=== PATIENT | female | born 1970 | race Caucasian/White ===

== ENCOUNTER 2021-04-05 11:16 | Outpatient (CLI) | payer MEDICAID, SELFPAY ==
--- NOTE | 2021-04-05 11:21 | XR_ITS ---
WS: [id number] LUMBAR SPINE: 7 VIEWS TECHNIQUE: AP, oblique, lateral, L5-S1 spot. Upright lateral projections in neutral, flexion and exte nsion. HISTORY: CHRONIC BACK PAIN COMPARISON: None available. Moderate RIGHT curvature lumbar spine. No significant foraminal narrowing. Slight increase in the lum bar lordosis. No fracture or displacement narrowing. No instability during flexion or extension. Very mild facet jacqueline int arthritis at L5-S1. SI joints are symmetric bilaterally. No soft tissue abnormalities. XR/XR lumbar spine 6V w f/e [id number] IMPRESSION: 1. Mild RIGHT scoliosis lumbar spine. 2. No lumbar spine instability. 3. No foraminal stenosis.
--- NOTE | 2021-04-05 11:21 | XR_ITS ---
WS: [id number] THORACIC SPINE TECHNIQUE: AP and lateral views are performed. HISTORY: CHRONIC BACK PAIN COMPARISON: None available. Mild LEFT curvature thoracic spine with focal increased kyphosis centrally. Mild disc space narrowing and osteophytes in the midthoracic spine. No fractures. Intervertebral distances are normal. XR/XR thoracic spine 2V [id number] IMPRESSION: Mild LEFT curvature thoracic spine and mild central spondylosis. No fractures.
== END 2021-04-05 11:17 | disposition home or self-care (01) ==
PROVIDERS: Visit Provider Family Medicine
DX: M54.6 Pain in thoracic spine (principal); G89.29 Other chronic pain; M47.814 Spondylosis without myelopathy or radiculopathy, thoracic region; M43.8X4 Other specified deforming dorsopathies, thoracic region; M41.86 Other forms of scoliosis, lumbar region
CPT/HCPCS: 72070; 72114

== ENCOUNTER 2021-04-16 13:00 | Outpatient (CLI) | payer BC, MEDICAID, SELFPAY ==
--- NOTE | 2021-04-16 13:14 | MM_ITS ---
WS: [id number] BILATERAL DIGITAL DIAGNOSTIC MAMMOGRAM MAMMOGRAPHY WITH CAD CLINICAL INFORMATION: LT BREAST LUMP 1-3 OCLOCK HISTORY: Left breast palpable lump COMPARISON: TECHNIQUE: Bilateral CC, MLO, and ML views. FINDINGS: Scattered fibroglandular densities bilaterally. Palpable marker upper outer left breast. Underlying d ense parenchymal tissue. Ultrasound is pending. No suspicious abnormality right breast. Right breast appears unchanged. ULTRASOUND BREAST LEFT TECHNIQUE: Ultrasound left breast focused area of concern. CLINICAL INFORMATION: LT BREAST LUMP 1-3 OCLOCK COMPARISON: None. FINDINGS: Ultrasound left breast at the 2:00 position. Underlying dense breast tissue in the area of interest 1-3 o'clock. At the 2:00 position, is a small thick-walled complex cystic appearing lesion with internal echogenic debris. Small lesion measures 3. 3 x 3.5 x 3.4 mm. Findings are probably benign. No other suspicious abnormalities. Recommend 6 month follow-up left diagnostic mammography and ultrasound to confirm stability MM/[place] [id number] IMPRESSION: BI-RADS: 3-Probably Benign FOLLOW UP: 6 Month Follow-up Recommend 6 month follow-up left diagnostic mammography and ultrasound to confi rm stability
== END 2021-04-16 13:01 | disposition home or self-care (01) ==
PROVIDERS: PCP Family Medicine; Visit Provider Nurse Practitioner Family
DX: N63.25 Unspecified lump in the left breast, overlapping quadrants (principal)
CPT/HCPCS: 76642; 77066

== ENCOUNTER → 2021-06-04 12:53 | Outpatient (BNVA) | payer BC, MEDICAID, SELFPAY | PROVIDERS: PCP Family Medicine; Referring Provider Family Medicine; Visit Provider Specialist | DX: R20.0 Anesthesia of skin (principal); R20.2 Paresthesia of skin | CPT/HCPCS: 95910 ==

== ENCOUNTER 2021-06-27 08:01 | Outpatient (RCR) | payer BC, MEDICAID, SELFPAY | END 2021-07-16 23:59 | disposition home or self-care (01) | LOC: SPT 08:01 | PROVIDERS: PCP Family Medicine; Referring Provider Family Medicine; Visit Provider Family Medicine | DX: M54.9 Dorsalgia, unspecified (principal); G89.29 Other chronic pain; M41.9 Scoliosis, unspecified | CPT/HCPCS: 97110; 97161 ==

== ENCOUNTER 2021-07-17 06:00 | Outpatient (RCR) | payer BC, MEDICAID, SELFPAY | END 2021-08-13 23:59 | disposition home or self-care (01) | LOC: SPT 06:00 | PROVIDERS: PCP Family Medicine; Referring Provider Family Medicine; Visit Provider Family Medicine | DX: M54.9 Dorsalgia, unspecified (principal); G89.29 Other chronic pain; M41.9 Scoliosis, unspecified | CPT/HCPCS: 97110 ==

== ENCOUNTER 2021-08-14 06:00 | Outpatient (RCR) | payer BC, MEDICAID, SELFPAY | END 2021-09-13 23:59 | disposition home or self-care (01) | LOC: SPT 06:00 | PROVIDERS: PCP Family Medicine; Referring Provider Family Medicine; Visit Provider Family Medicine | DX: M54.9 Dorsalgia, unspecified (principal); M41.9 Scoliosis, unspecified | CPT/HCPCS: 97110; 97530 ==

== ENCOUNTER 2021-10-15 14:08 | Outpatient (CLI) | payer BC, MEDICAID, SELFPAY ==
--- NOTE | 2021-10-15 14:12 | MM_ITS ---
WS: [id number] LEFT 3D TOMOSYNTHESIS DIGITAL MAMMOGRAPHY WITH CAD CLINICAL INFORMATION: 6 MO F/U ABNORMAL MAMMOGRAM COMPARISON: April 16, 2021 TECHNIQUE: 3 views of the left breast were obtained. FINDINGS: Scattered fibroglandular densities of the left breast. Dense parenchymal tissue upper outer LEFT jhon[address] is unchanged in appearance. Incidental punctate calcification. Ultrasound is pending. ULTRASOUND BREAST LEFT TECHNIQUE: Ultrasound left breast focused area of concern. CLINICAL INFORMATION: 6 MO F/U ABNORMAL MAMMOGRAM COMPARISON: April 16, 2021 FINDINGS: Ultrasound LEFT breast at the 1 to 3:00 position. Thick-walled cystic lesion with some internal echog enic debris measuring 1.8 x 1.9 x 1.3 mm is unchanged in appearance. This likely represents a complex cyst. Recommend additional six-month follow-up at the time of annual screening mammography to tara russell. MM/[place] [id number] IMPRESSION: BI-RADS: 3-Probably Benign FOLLOW UP: 6 Month Follow-up Recommend additional LEFT breast diagnostic mammography and ultrasound at time of annual screening mammography April 2022
== END 2021-10-15 14:09 | disposition home or self-care (01) ==
LOC: RAD 14:09
PROVIDERS: PCP Family Medicine; Visit Provider Family Medicine
DX: R92.8 Other abnormal and inconclusive findings on diagnostic imaging of breast (principal)
CPT/HCPCS: 76642; 77061

== ENCOUNTER → 2022-01-02 11:04 | Outpatient (BNVA) | payer BC, MEDICAID, SELFPAY | PROVIDERS: PCP Family Medicine; Referring Provider Family Medicine; Visit Provider Specialist | DX: M79.7 Fibromyalgia (principal) | CPT/HCPCS: 36415; 82607; 82746; 85651; 86140; 86160; 86162; 86200; 86235; 86255; 86376; 86431; 99204 ==

== ENCOUNTER → 2022-02-19 10:08 | Outpatient (BNVA) | payer BC, MEDICAID, SELFPAY | PROVIDERS: PCP Family Medicine; Visit Provider Internal Medicine Rheumatology | DX: M45.6 Ankylosing spondylitis lumbar region (principal); M19.90 Unspecified osteoarthritis, unspecified site; Z11.59 Encounter for screening for other viral diseases; Z79.899 Other long term (current) drug therapy | CPT/HCPCS: 36415; 71046; 73130; 73562; 73630; 80076; 82565; 85025; 85651; 86140; 86480; 86704; 86803; 86812; 87340 ==

== ENCOUNTER 2022-04-07 16:10 | Emergency (ER) | payer BC, MEDICAID, SELFPAY ==
[2022-04-07 16:54] VITALS: BMI 19.8
[2022-04-07 16:59] VITALS: BP 140/81; PULSE 88; RESP 18; TEMP 36.9; O2SAT 98
--- NOTE | 2022-04-07 17:20 | ED_ITS ---
HPI - Back Pain/Injury General: Chief Complaint: Back Pain/Injury Stated Complaint: Abd pains, Vomiting Time Seen by Provider: 04/07/22 17:03 History of Present Illness: 52-year-old female comes in today for complaints of exacerbation of chronic pain. Patient taking her usual medications at home but she continues to have significant pain causing nausea. Patient has a history of inflammatory arthritis, scleroderma. Patient denies any fever. Patient appears in moderate pain. Patient appears nontoxic. Associated symptoms: Reports nausea; Deny fever(s) or vomiting Review of Systems Const: Denies: fever(s) Card: Denies: chest pain Resp: Denies: dyspnea GI: Reports: nausea; Denies: vomiting or diarrhea : Denies: difficulty voiding Skin/Breast: Denies: rash PFSH ED PFSH: Medical History History of scleroderma Inflammatory arthritis Joint pain Scl-70 antibody positive Scoliosis Surgical History History of bilateral tubal ligation Family History Other CAD (coronary artery disease) Diabetes Family history of premature coronary artery disease Hypertension Lung disease Rheumatoid arthritis Stroke Denies family history of Lupus Chronic kidney disease (CKD) Cancer Social History Smoking and tobacco status: never smoked Physical Exam Const: COMMON NORMALS: alert HENMT: COMMON NORMALS: normocephalic HEAD & SCALP: normocephalic Neck/C-Spine: COMMON NORMALS: full ROM Resp: COMMON NORMALS: normal respiratory effort and clear to auscultation bilaterally AUSCULTATION: clear to auscultation bilaterally Cardio: COMMON NORMALS: regular rate and regular rhythm RATE: regular rate RHYTHM: regular rhythm GI: COMMON NORMALS: non-tender : COMMON NORMALS: Yes no CVA tenderness BLADDER/KIDNEY EXAM: Yes no CVA tenderness Back/Pelvis: COMMON NORMALS: no CVA tenderness Extremity: COMMON NORMALS: no pedal edema Neuro: SENSORIUM/ORIENTATION: Yes alert Skin: COMMON NORMALS: no rashes or lesions noted GENERAL SKIN EXAM: no rashes or lesions noted Course Vital Signs: Vital signs: Vital Signs Temperature 98.4 F 04/07/22 16:59 Pulse Rate 88 04/07/22 16:59 Respiratory Rate 19 H 04/07/22 17:59 Blood Pressure 140/81 04/07/22 16:59 Pulse Oximetry 98 04/07/22 16:59 Oxygen Delivery Me thod 04/07/22 16:59 MDM - Back Pain/Injury Medical Decision Making 52-year-old female comes in today for complaints of exacerbation of chronic pain. On exam patient appears nontoxic. Patient appears in no acute distress. Respirations are even lungs are clear to auscultation. Abdomen soft nontender. Vital signs are normal. Differential diagnosis includes but not limited to exacerbation of chronic pain, arthritis flare, fibromyalgia, malingering. Patient was treated for her pain with 30 mg of Toradol and 1 mg of hydromorphone x1. Patient was also given Zofran 4 mg x 1 for nausea in the ER. Zofran was changed to promethazine for home use. Encourage patient to follow-up with her primary care or her specialist tomorrow for further recommendations of her pain control. Patient stated understanding agreed to plan. Discharge Plan Discharge Patient Disposition: Home Clinical Impression: Inflammatory arthritis, Nausea Condition: Stable Prescriptions: New promethazine 12.5 mg tablet 12.5 mg PO TID PRN (Reason: nausea and vomiting) Qty: 14 0RF Rx Instructions: 3 doses during day; last dose no later than 4 hr before bedtime No Action cyclobenzaprine 10 mg tablet 10 mg PO Q12H naproxen PO hydrocodone-acetaminophen 5-325 mg tablet 1 tab PO BID PRN prednisone 20 mg tablet See Rx Instructions PO .COMPLEX PRN (Reason: joint pain flare) Qty: 30 1RF Rx Instructions: take 1 or 2 tab daily for 3-7 days as needed for arthritis flare PO PRN; hydroxychloroquine 200 mg tablet 200 mg PO DAILY Qty: 30 3RF Discharge Orders: Discharge ED (Routine); Ordered 04/07/22 Ordered By: Robb Reyes Referrals: Wicho Yao MD [Primary Care Provider] - Discharge Diet: Usual diet Discharge Activity: Increase activity as tolerated Patient Instructions: Acute Nausea and Vomiting (ED), Opioid Safety, Pain Management Activity Restrictions/Additional Instructions: Continue with routine medications. Use promethazine as needed for nausea or vomiting. Take sips of water frequently to maintain hydration. Follow-up with primary care or rheumatoid specialist for further evaluation and treatment. Return to ER for worsening symptoms such as fever greater than 100.4, blood in vomit or stool, or new concerns. 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
[2022-04-07 17:59] VITALS: RESP 19
[2022-04-07] MEDS: ketorolac 30 mg/mL INJ IM (17:59)
[2022-04-07] MEDS: HYDROmorphone 1 mg/mL INJ 1 mL IM (17:59)
[2022-04-07] MEDS: ondansetron 4 MG Tablet PO (18:00)
[2022-04-07 18:42] VITALS: RESP 19; O2SAT 97
[2022-04-07] MEDS: morphine 4 mg/mL SDV 1 mL IM (18:42)
[2022-04-07 18:44] VITALS: PULSE 89; O2SAT 97
== END 2022-04-07 18:46 | disposition home or self-care (01) ==
PROVIDERS: Emergency Provider Nurse Practitioner Family; PCP Family Medicine
DX: M13.80 Other specified arthritis, unspecified site (principal); R11.0 Nausea
CPT/HCPCS: 96372; 99284; J1170; J1885; J2270; Q0162

== ENCOUNTER 2022-06-18 08:34 | Outpatient (CLI) | payer BC, MEDICAID, SELFPAY ==
--- NOTE | 2022-06-18 08:46 | MM_ITS ---
WS: [id number] BILATERAL 3D TOMOSYNTHESIS DIGITAL DIAGNOSTIC MAMMOGRAPHY WITH CAD CLINICAL INFORMATION: 6M FOLLOW UP COMPARISON: October 15, 2021 TECHNIQUE: Bilateral CC, MLO, and ML views. FINDINGS: Scattered fibroglandular densities bilaterally. Stable dense parenchyma tissue upper outer LEFT breas t. Incidental punctate calcifications. Ultrasound described below. ULTRASOUND BREAST LEFT TECHNIQUE: Ultrasound left breast focused area of concern. CLINICAL INFORMATION: 6M FOLLOW UP COMPARISON: Ultrasound October 15, 2021 and ultrasound FINDINGS: Ultrasound LEFT breast at the 2:00 position 2 cm from the nipple. Elongated ovoid hypoechoic lesion m easuring 7.8 x 2.4 x 6.9 mm likely represents complex cyst, dilated duct with debris, or fibrocystic change. This is similar in appearance to . Additional hypoechoic lesion at the 1:00 position 1 cm from the nipple is suspicious for a complex cy st measuring 3.1 x 3.0 x 3.7 mm. Recommend 6 month follow-up to confirm stability of these lesions. MM/[place] [id number] IMPRESSION: BI-RADS: 3-Probably Benign FOLLOW UP: 6 Month Follow-up Recommend 6 month follow-up LEFT breast diagnostic mammography and ultrasound i n further evaluation.
== END 2022-06-18 08:35 | disposition home or self-care (01) ==
PROVIDERS: PCP Family Medicine; Visit Provider Family Medicine
DX: R92.8 Other abnormal and inconclusive findings on diagnostic imaging of breast (principal); N63.21 Unspecified lump in the left breast, upper outer quadrant
CPT/HCPCS: 76642; 77062; G0279

== ENCOUNTER 2022-07-22 08:44 | Outpatient (CLI) | payer BC, MEDICAID, SELFPAY ==
--- NOTE | 2022-07-22 08:58 | US_ITS ---
WS: [id number] ULTRASOUND BREAST RIGHT TECHNIQUE: Ultrasound right breast focused area of concern. CLINICAL INFORMATION: ABNORMAL R MAMMOGRAM/NEW NODULE IN R BREAST COMPARISON: June 18, 2022 FINDINGS: Ultrasound RIGHT breast 9:00 position 1 cm from the nipple. Slightly complex cyst with a few septatio ns. This has a benign appearance and measures approximately 9.8 x 10 x 4.2 mm. No other suspicious fi ndings. US/US breast RT limited* [id number] IMPRESSION: BI-RADS 2 benign *Previously described LEFT breast 6 month follow-up with LEFT breast diagnostic mammography and LEFT breast ultrasound.
== END 2022-07-22 08:45 | disposition home or self-care (01) ==
PROVIDERS: PCP Family Medicine; Visit Provider Family Medicine
DX: R92.8 Other abnormal and inconclusive findings on diagnostic imaging of breast (principal); N63.10 Unspecified lump in the right breast, unspecified quadrant
CPT/HCPCS: 76642

== ENCOUNTER 2022-07-23 10:52 | Outpatient (CLI) | payer BC, MEDICAID, SELFPAY ==
--- NOTE | 2022-07-23 12:40 | FL_ITS ---
WS: [id number] FL barium swallow modifd [id number] REASON FOR EXAM: Other dysphagia FLUOROSCOPY TIME: 1min [id number] # OF SPOT FILMS: None FINDINGS: Examination was supervised by the speech therapy department. The swallowing of barium in the sitting upright lateral projection was performed with multiple consis tencies of barium. Evaluation was performed with video fluoroscopy. No aspiration was identified. Dysmotility of the thoracic esophagus. Formal esophagram will be requested by speech therapy. Detailed analysis and report will be rendered by speech therapy. FL/FL barium swallow modifd [id number] IMPRESSION: Modified barium swallow as above.
== END 2022-07-23 10:53 | disposition home or self-care (01) ==
LOC: RAD 10:53
PROVIDERS: PCP Family Medicine; Visit Provider Nurse Practitioner Family
DX: R13.10 Dysphagia, unspecified (principal)
CPT/HCPCS: 74230; 92611

== ENCOUNTER → 2023-03-11 13:36 | Outpatient (BNVA) | payer MEDICAID, SELFPAY | PROVIDERS: PCP Family Medicine; Visit Provider Internal Medicine Rheumatology | DX: M19.90 Unspecified osteoarthritis, unspecified site (principal); R76.8 Other specified abnormal immunological findings in serum; M71.20 Synovial cyst of popliteal space [Baker], unspecified knee; M45.6 Ankylosing spondylitis lumbar region; R13.10 Dysphagia, unspecified | CPT/HCPCS: 36415; 80076; 82565; 85025; 86140; 86812; 99214 ==

== ENCOUNTER 2023-03-27 12:51 | Outpatient (CLI) | payer MEDICAID, SELFPAY ==
--- NOTE | 2023-03-27 13:14 | MM_ITS ---
WS: [id number] LEFT 3D TOMOSYNTHESIS DIGITAL MAMMOGRAPHY WITH CAD CLINICAL INFORMATION: 6 MO F/U ABNORMAL MAMMO HISTORY: 6-month follow-up COMPARISON: June 2022 TECHNIQUE: 3 views of the left breast were obtained. FINDINGS: Scattered fibroglandular densities of the left breast. Stable dense parenchymal tissue upper outer LE FT breast. Incidental punctate calcifications. Ultrasound is pending. ULTRASOUND BREAST LEFT TECHNIQUE: Ultrasound left breast focused area of concern. CLINICAL INFORMATION: 6 MO F/U ABNORMAL MAMMO FINDINGS: Ultrasound LEFT breast 2 o'clock position 2 cm from the nipple. Stable small hypoechoic ovoid nodule measuring 7 x 3 mm. This is unchanged in appearance compared to 06/18/2022. This has a benign appearanc e and recommend return to annual screen mammography. IMPRESSION: MM/[place] [id number] BI-RADS: 2-Benign FOLLOW UP: 1 Year Follow-up Recommend return to annual screening mammography.
--- NOTE | 2023-03-27 13:45 | US_ITS ---
WS: [id number] ULTRASOUND SOFT TISSUES RIGHT knee HISTORY: M71.20 - Synovial cyst of popliteal space [Saleem], unspec... COMPARISON: Radiograph 02/19/2022. TECHNIQUE: 2-D and color Doppler imaging is submitted. Focal nodule with posterior shadowing in the posterior RIGHT knee. This area of shadowing and nodular ity measures 7 x 5 x 5 mm. This may be a fabella which is a normal ossicle posterior to the lateral f emoral condyle. There is an additional hypoechoic nodule also along the posterior lateral knee measur ing 7 x 6 x 5 mm. This may be a small Saleem's cyst developing. IMPRESSION: 1. Dense shadowing consistent with a calcification or ossification posterior to the lateral femoral c ondyle. This may be a fabella that is a normal accessory ossicle. 2. Additional hypoechoic nodule in the posterior lateral LEFT knee may be the wall of a very small Ba ker's cyst.
== END 2023-03-27 12:52 | disposition home or self-care (01) ==
LOC: RAD 12:52
PROVIDERS: PCP Family Medicine; Visit Provider Family Medicine
DX: R92.8 Other abnormal and inconclusive findings on diagnostic imaging of breast (principal); M71.22 Synovial cyst of popliteal space [Baker], left knee
CPT/HCPCS: 76642; 76882; 77061; G0279

== ENCOUNTER → 2023-04-24 10:44 | Outpatient (BNVA) | payer OTHER, SELFPAY | PROVIDERS: PCP Family Medicine; Visit Provider Student in an Organized Health Care Education/Training Program | DX: M25.562 Pain in left knee (principal); M23.303 Other meniscus derangements, unspecified medial meniscus, right knee | CPT/HCPCS: 73560; 73565 ==

== ENCOUNTER 2023-05-28 09:55 | Outpatient (CLI) | payer OTHER, SELFPAY ==
--- NOTE | 2023-05-28 10:15 | MR_ITS ---
WS: [id number] MRI RIGHT KNEE HISTORY: meniscal tear COMPARISON: Radiographs 04/24/2023 Anterior cruciate ligament: Intact. Posterior cruciate ligament: Intact. Medial collateral ligament: Intact. Posterior lateral corner structures: Intact. Medial menisci: Intact. Normal signal, size and shape. Lateral meniscus: Intact. Normal signal, size and shape. Extensor mechanism: Distal quadriceps tendon and patellar tendons are intact. Fluid and soft tissue: No joint effusion. No Saleem's cyst. Lobulated cystic mass at the origin latera l head of the gastrocnemius muscle. This loculated cystic mass associated with the tendon measures 1. 7 x 1.3 cm. There is an additional very small fluid collection adjacent to the popliteus tendon and m uscle. Osseous and articular structures: Patellofemoral compartment: Normal. Medial compartment: Negative. Lateral compartment: Negative. IMPRESSION: 1. No meniscal or ACL tear. 2. Lobulated cystic mass in the tendon and lateral head of the gastrocnemius muscle measures 1.7 x 1. 3 cm. Mass is just posterior to the femoral condyle. Most consistent with a ganglion. 3. No cartilage abnormality. 4. Small amount of fluid adjacent to the popliteus tendon. May be an associated with bursitis.
== END 2023-05-28 09:56 | disposition home or self-care (01) ==
LOC: RAD 09:55
PROVIDERS: PCP Family Medicine; Visit Provider Student in an Organized Health Care Education/Training Program
DX: R22.41 Localized swelling, mass and lump, right lower limb (principal); S83.206A Unspecified tear of unspecified meniscus, current injury, right knee, initial encounter; X58.XXXA Exposure to other specified factors, initial encounter
CPT/HCPCS: 73721

== ENCOUNTER → 2023-06-03 14:53 | Outpatient (BNVA) | payer OTHER, SELFPAY | PROVIDERS: PCP Family Medicine; Visit Provider Internal Medicine Rheumatology | DX: M19.90 Unspecified osteoarthritis, unspecified site (principal); R07.9 Chest pain, unspecified; R76.8 Other specified abnormal immunological findings in serum; R13.10 Dysphagia, unspecified; Z79.899 Other long term (current) drug therapy | CPT/HCPCS: 36415; 80076; 82565; 85025; 85651; 86140 ==

== ENCOUNTER 2023-07-11 09:11 | Oncology outpatient (recurring) (ONCR) | payer OTHER, SELFPAY ==
[2023-07-11] MEDS: acetaminophen 325 mg Tablet 650 MG PO (10:02)
[2023-07-11] MEDS: sodium chloride 0.9% 250 ML 75 ML IV (10:03)
[2023-07-11 10:05] VITALS: BP 103/68; PULSE 89; RESP 17; TEMP 37.2; O2SAT 95
[2023-07-11] MEDS: diphenhydrAMINE 50 mg/mL SDV 1mL 25 MG IVP (10:07)
[2023-07-11] MEDS: methylPREDNISolone sod succ 40 mg/mL INJ IVP (10:13)
--- NOTE | 2023-07-11 10:41 | PC.NURSE ---
tocilizumab cosigned, patient name, , medication, does, route and rate verified.
[2023-07-11 12:00] VITALS: PULSE 90; RESP 16; TEMP 37.1; O2SAT 98
== END 2023-07-16 23:59 | disposition home or self-care (01) ==
PROVIDERS: PCP Family Medicine; Visit Provider Internal Medicine Rheumatology
DX: M34.9 Systemic sclerosis, unspecified (principal)
CPT/HCPCS: 96375; 96413; J1200; J2920; J3262; J7050

== ENCOUNTER 2023-08-08 09:24 | Oncology outpatient (recurring) (ONCR) | payer OTHER, SELFPAY ==
[2023-08-08 10:11] LABS: Basophils # 0.1 10^3/uL (0.0-0.1); Basophils % 1.4 %; Eosinophils # 0.2 10^3/uL (0.0-0.8); Hematocrit 37.1 % (36-47); Lymphocytes # 1.7 10^3/uL (0.8-4.8); Lymphocytes % 39.9 %; Mean Corpuscular Volume 94.2 fl (85-98); Mean Platelet Volume 9.8 fL (7.4-10.4); Monocytes # 0.4 10^3/uL (0.2-0.9); Monocytes % 8.8 %; Neutrophils # 1.89 10^3/uL (1.8-7.7); Neutrophils % 44.9 %; Nucleated Red Blood Cells % 0 %; Platelet Count 280 10^3/cmm (157-399); Red Blood Count 3.94 10^6/uL (3.85-5.65); Red Cell Distribution Width 12.1 % (12.1-15.1); White Blood Count 4.21 10^3/uL (3.29-11.43)
[2023-08-08] MEDS: acetaminophen 325 mg Tablet 650 MG PO (10:11)
[2023-08-08] MEDS: sodium chloride 0.9% 250 ML 75 ML IV (10:12)
[2023-08-08] MEDS: diphenhydrAMINE 50 mg/mL SDV 1mL 25 MG IVP (10:17)
[2023-08-08 10:21] LABS: Erythrocyte Sedimentation Rate 5 mm/hr (0-15)
[2023-08-08] MEDS: methylPREDNISolone sod succ 40 mg/mL INJ IVP (10:21)
[2023-08-08 10:28] LABS: Albumin Level 4.3 g/dL (3.5-5.2); Alkaline Phosphatase 70 U/L (35-105); Aspartate Amino Transferase 17 U/L (0-32); Creatinine Clr Calc Pharmacy 74.9128; Globulin 2.9 g/dL (1.3-4.6); Glomerular Filtration Rate 105.4 mL/min (90-130); Total Bilirubin 0.3 mg/dL (0.15-1.2); Total Protein 7.2 g/dL (6.6-8.7)
[2023-08-08 10:35] VITALS: BP 120/74; PULSE 74; RESP 16; TEMP 36.8; O2SAT 98
[2023-08-08] MEDS: TOCILIZUMAB IV (10:37)
[2023-08-08] MEDS: SODIUM CHLORIDE 0.9% IV (10:37)
[2023-08-08 10:39] LABS: Alanine Aminotransferase 17 U/L (0-33)
[2023-08-08 11:49] VITALS: BP 105/71; PULSE 82; RESP 16; TEMP 36.9; O2SAT 98
== END 2023-08-14 23:59 | disposition home or self-care (01) ==
PROVIDERS: PCP Family Medicine; Visit Provider Internal Medicine Rheumatology
DX: M34.9 Systemic sclerosis, unspecified (principal); Z53.9 Procedure and treatment not carried out, unspecified reason
CPT/HCPCS: 36415; 80076; 82565; 85025; 85651; 96375; 96413; J1200; J2920; J3262; J7050

== ENCOUNTER 2023-09-02 12:31 | Outpatient (CLI) | payer OTHER, SELFPAY ==
--- NOTE | 2023-09-02 13:19 | MM_ITS ---
WS: [id number] Bilateral screening 3D tomosynthesis digital mammogram, 09/02/2023 Clinical Data: SCREENING Comparison: 03/27/2023, 06/18/2022, 10/15/2021, 04/16/2021, 07/01/2018, 09/10/2013. Findings: The breast parenchymal pattern shows heterogeneous density. No spiculated masses or clustered calcifi cations are seen. There are no secondary signs of carcinoma. Impression: 1. Negative bilateral mammogram unchanged. 2. Recommend annual screening mammograms. MM/[place] [id number] BIRADS: 1-Negative FOLLOW UP: 1 Year Follow-up The CAD baggage security checker was used.
--- NOTE | 2023-09-02 14:47 | XR_ITS ---
WS: [id number] Lumbar spine, 3 views, 09/02/2023 Clinical Data: M54.9 - Dorsalgia, unspecified Comparison: Lumbar spine, 04/05/2021 Findings: No compression fractures or subluxation is seen. No disc space narrowing is seen. The transverse proc esses and SI joints are normal. There is a slight dextroscoliosis. Impression: Minimal dextroscoliosis.
== END 2023-09-02 12:32 | disposition home or self-care (01) ==
LOC: RAD 12:32
PROVIDERS: PCP Family Medicine; Visit Provider Family Medicine
DX: Z12.31 Encounter for screening mammogram for malignant neoplasm of breast (principal); R92.333 Mammographic heterogeneous density, bilateral breasts; M54.50 Low back pain, unspecified; M41.9 Scoliosis, unspecified
CPT/HCPCS: 72100; 77063; 77067

== ENCOUNTER 2023-10-03 09:00 | Oncology outpatient (recurring) (ONCR) | payer OTHER, SELFPAY ==
[2023-10-03] MEDS: sodium chloride 0.9% 250 ML 75 ML IV (09:35)
[2023-10-03] MEDS: diphenhydrAMINE 50 mg/mL SDV 1mL 25 MG IVP (09:36)
[2023-10-03] MEDS: acetaminophen 325 mg Tablet 650 MG PO (09:36)
[2023-10-03] MEDS: methylPREDNISolone sod succ 40 mg/mL INJ IVP (09:37)
[2023-10-03 09:40] LABS: Eosinophils # 0.1 10^3/uL (0.0-0.8); Eosinophils % 3.7 %; Erythrocyte Sedimentation Rate 3 mm/hr (0-15); Hematocrit 37.8 % (36-47); Lymphocytes # 1.6 10^3/uL (0.8-4.8); Lymphocytes % 41.9 %; Mean Corpuscular HGB Conc 34.4 g/dL (30-55); Mean Corpuscular Hemoglobin 32.7 pg (27-33); Mean Platelet Volume 9.2 fL (7.4-10.4); Monocytes # 0.3 10^3/uL (0.2-0.9); Monocytes % 7.6 %; Neutrophils # 1.73 10^3/uL (1.8-7.7); Neutrophils % 45.3 %; Nucleated Red Blood Cells % 0 %; Platelet Count 280 10^3/cmm (157-399); Red Blood Count 3.98 10^6/uL (3.85-5.65); Red Cell Distribution Width 12.3 % (12.1-15.1); White Blood Count 3.82 10^3/uL (3.29-11.43)
[2023-10-03 09:58] LABS: Alanine Aminotransferase 9 U/L (0-33); Albumin Level 4.6 g/dL (3.5-5.2); Alkaline Phosphatase 61 U/L (35-105); Aspartate Amino Transferase 17 U/L (0-32); Creatinine Clr Calc Pharmacy 78.6375; Glomerular Filtration Rate 105.4 mL/min (90-130); Total Bilirubin 0.4 mg/dL (0.15-1.2); Total Protein 7.6 g/dL (6.6-8.7)
[2023-10-03] MEDS: SODIUM CHLORIDE 0.9% IV (10:04)
[2023-10-03] MEDS: TOCILIZUMAB IV (10:04)
[2023-10-03 11:07] VITALS: BP 112/67; PULSE 89; TEMP 36.6; O2SAT 99
== END 2023-10-14 23:59 | disposition home or self-care (01) ==
LOC: ONCMED 09:00
PROVIDERS: PCP Family Medicine; Visit Provider Internal Medicine Rheumatology
DX: M34.9 Systemic sclerosis, unspecified (principal)
CPT/HCPCS: 80076; 82565; 85025; 85651; 96365; 96375; J1200; J2919; J3262; J7050

== ENCOUNTER 2023-10-31 08:39 | Oncology outpatient (recurring) (ONCR) | payer OTHER, SELFPAY ==
[2023-10-31] MEDS: sodium chloride 0.9% 250 ML 75 ML IV (09:29)
[2023-10-31] MEDS: diphenhydrAMINE 50 mg/mL SDV 1mL 25 MG IVP (09:29)
[2023-10-31] MEDS: acetaminophen 325 mg Tablet 650 MG PO (09:29)
[2023-10-31] MEDS: methylPREDNISolone sod succ 40 mg/mL INJ IVP (09:30)
[2023-10-31 09:40] VITALS: BP 125/64; PULSE 80; RESP 18; TEMP 36.7; O2SAT 100
[2023-10-31] MEDS: SODIUM CHLORIDE 0.9% IV (09:51)
[2023-10-31] MEDS: TOCILIZUMAB IV (09:51)
[2023-10-31 10:57] VITALS: BP 98/51; PULSE 66; RESP 16; TEMP 36.4; O2SAT 99
== END 2023-11-14 23:59 | disposition home or self-care (01) ==
PROVIDERS: PCP Family Medicine; Visit Provider Internal Medicine Rheumatology
DX: M34.9 Systemic sclerosis, unspecified (principal)
CPT/HCPCS: 96365; J1200; J2919; J3262; J7050

== ENCOUNTER 2023-11-28 08:33 | Oncology outpatient (recurring) (ONCR) | payer OTHER, SELFPAY ==
[2023-11-28 08:57] VITALS: BP 121/75; PULSE 88; RESP 16; TEMP 36.7; O2SAT 98
[2023-11-28 09:13] LABS: Erythrocyte Sedimentation Rate 2 mm/hr (0-15)
[2023-11-28 09:15] LABS: Basophils # 0.1 10^3/uL (0.0-0.1); Basophils % 1.2 %; Eosinophils # 0.2 10^3/uL (0.0-0.8); Eosinophils % 5.2 %; Hematocrit 41.4 % (36-47); Lymphocytes # 2.2 10^3/uL (0.8-4.8); Lymphocytes % 51.5 %; Mean Corpuscular HGB Conc 33.6 g/dL (30-55); Mean Corpuscular Hemoglobin 32.3 pg (27-33); Mean Corpuscular Volume 96.1 fl (85-98); Mean Platelet Volume 9.6 fL (7.4-10.4); Monocytes # 0.4 10^3/uL (0.2-0.9); Monocytes % 9.5 %; Neutrophils # 1.37 10^3/uL (1.8-7.7); Neutrophils % 32.4 %; Nucleated Red Blood Cells % 0 %; Platelet Count 269 10^3/cmm (157-399); Red Blood Count 4.31 10^6/uL (3.85-5.65); Red Cell Distribution Width 11.7 % (12.1-15.1); White Blood Count 4.23 10^3/uL (3.29-11.43)
[2023-11-28] MEDS: sodium chloride 0.9% 250 ML 75 ML IV (09:18)
[2023-11-28] MEDS: diphenhydrAMINE 50 mg/mL SDV 1mL 25 MG IVP (09:19)
[2023-11-28] MEDS: acetaminophen 325 mg Tablet 650 MG PO (09:19)
[2023-11-28] MEDS: methylPREDNISolone sod succ 40 mg/mL INJ IVP (09:20)
[2023-11-28 09:33] LABS: Alanine Aminotransferase 9 U/L (0-33); Albumin Level 4.9 g/dL (3.5-5.2); Alkaline Phosphatase 58 U/L (35-105); Aspartate Amino Transferase 20 U/L (0-32); Globulin 3.3 g/dL (1.3-4.6); Glomerular Filtration Rate 88.2 mL/min (90-130); Total Bilirubin 0.6 mg/dL (0.15-1.2); Total Protein 8.2 g/dL (6.6-8.7)
[2023-11-28] MEDS: SODIUM CHLORIDE 0.9% IV (09:45)
[2023-11-28] MEDS: TOCILIZUMAB IV (09:45)
[2023-11-28 10:37] VITALS: BP 112/59; PULSE 85; RESP 16; TEMP 36.7; O2SAT 97
== END 2023-12-14 23:59 | disposition home or self-care (01) ==
PROVIDERS: PCP Family Medicine; Visit Provider Internal Medicine Rheumatology
DX: M34.9 Systemic sclerosis, unspecified (principal)
CPT/HCPCS: 80076; 82565; 85025; 85651; 96375; 96413; J1200; J2919; J3262; J7050

== ENCOUNTER → 2024-02-02 14:03 | Outpatient (BNVA) | payer MEDICAID, SELFPAY | PROVIDERS: PCP Family Medicine; Visit Provider Internal Medicine Rheumatology | DX: M06.041 Rheumatoid arthritis without rheumatoid factor, right hand (principal); M06.042 Rheumatoid arthritis without rheumatoid factor, left hand; R76.8 Other specified abnormal immunological findings in serum; R13.10 Dysphagia, unspecified; Z79.899 Other long term (current) drug therapy; Z71.85 Encounter for immunization safety counseling | CPT/HCPCS: 99214 ==

== ENCOUNTER 2024-09-09 11:08 | Outpatient (CLI) | payer MEDICAID, SELFPAY ==
[2024-09-09 12:12] LABS: Hepatitis C Virus Antibody Non-Reactive (Nonreactive)
[2024-09-09 12:19] LABS: Hepatitis B Core AB, Total Non-Reactive (Nonreactive); Hepatitis B Surface Antigen Non-Reactive (Nonreactive)
== END 2024-09-09 11:09 | disposition home or self-care (01) ==
LOC: LAB 11:10
PROVIDERS: PCP Family Medicine; Visit Provider Internal Medicine Rheumatology
DX: Z11.59 Encounter for screening for other viral diseases (principal); Z11.1 Encounter for screening for respiratory tuberculosis
CPT/HCPCS: 36415; 86480; 86704; 86803; 87340

== ENCOUNTER → 2024-12-23 10:33 | Outpatient (BNVA) | payer MEDICAID, SELFPAY | PROVIDERS: PCP Family Medicine; Visit Provider Internal Medicine Rheumatology | DX: R76.8 Other specified abnormal immunological findings in serum (principal); M06.041 Rheumatoid arthritis without rheumatoid factor, right hand; M06.042 Rheumatoid arthritis without rheumatoid factor, left hand; Z79.899 Other long term (current) drug therapy; Z71.85 Encounter for immunization safety counseling | CPT/HCPCS: 99214 ==

== ENCOUNTER 2024-12-27 11:00 | Outpatient (CLI) | payer MEDICAID, SELFPAY ==
[2024-12-27 11:59] LABS: Hematocrit 38.6 % (36-47); Hemoglobin 13.20 g/dL (11.27-16.99); Mean Corpuscular HGB Conc 34.2 g/dL (30-55); Mean Corpuscular Hemoglobin 33.0 pg (27-33); Mean Corpuscular Volume 96.5 fl (85-98); Nucleated Red Blood Cells % 0 %; Platelet Count 252 10^3/cmm (157-399); Red Blood Count 4.00 10^6/uL (3.85-5.65); White Blood Count 6.33 10^3/uL (3.29-11.43)
[2024-12-27 12:25] LABS: Alanine Aminotransferase 7 U/L (0-33); Albumin Level 4.2 g/dL (3.5-5.2); Alkaline Phosphatase 53 U/L (35-105); Aspartate Amino Transferase 12 U/L (0-32); Globulin 2.7 g/dL (1.3-4.6); Total Protein 6.9 g/dL (6.6-8.7)
== END 2024-12-27 11:01 | disposition home or self-care (01) ==
LOC: LAB 11:02
PROVIDERS: PCP Family Medicine; Visit Provider Internal Medicine Rheumatology
DX: Z79.899 Other long term (current) drug therapy (principal)
CPT/HCPCS: 36415; 80076; 82565; 85025; 85651; 86140

== ENCOUNTER → 2025-05-16 14:08 | Outpatient (BNVA) | payer MEDICAID, SELFPAY | PROVIDERS: PCP Family Medicine; Visit Provider Internal Medicine Rheumatology | DX: R76.89 Other specified abnormal immunological findings in serum (principal); M06.041 Rheumatoid arthritis without rheumatoid factor, right hand; M06.042 Rheumatoid arthritis without rheumatoid factor, left hand; Z79.899 Other long term (current) drug therapy; Z71.85 Encounter for immunization safety counseling | CPT/HCPCS: 36415; 80076; 82565; 85025; 85651; 86140; 99214 ==